=== PATIENT | male | born 1975 | race Caucasian/White ===

== ENCOUNTER 2020-01-19 16:44 | Emergency (ER) | payer OTHER ==
[~2020-01-19] VITALS: Ht 180.3 cm; Wt 71.7 kg
[2020-01-19 17:00] VITALS: BP 113/78
--- NOTE | 2020-01-19 18:09 | NUR ---
PATIENT LEFT WITHOUT BEING SEEN BY DR. JASSO. NO FURTHER CARE PROVIDED FOR PATIENT.
--- NOTE | 2020-01-19 18:09 | NUR ---
1st call for pt in ER lobby, no answer.
--- NOTE | 2020-01-19 18:17 | NUR ---
2ND CALL IN ER LOBBY, NO ANSWER
== END 2020-01-19 18:09 | disposition left against medical advice (07) ==
LOC: MED 16:44
DX: M54.2 Cervicalgia (principal); M25.519 Pain in unspecified shoulder; M25.551 Pain in right hip; Z53.21 Procedure and treatment not carried out due to patient leaving prior to being seen by health care provider